=== PATIENT | male | born 1975 | race Caucasian/White ===

== ENCOUNTER 2018-07-25 09:13 | Observation (INO) | payer BC ==
[2018-07-25 09:52] LABS: #Eosinphils 0.2 thou/uL (0.0-0.7); #Monocytes 0.6 thou/uL (0.11-0.59); #Neutrophils 7.6 thou/uL (1.40-6.50); %Basophils 0.4 % (0.0-1.0); %Eosinophils 1.8 % (0.0-10.0); %Lymphocytes 19.1 % (21.0-51.0); %Monocytes 5.5 % (0.0-10.0); %Neutrophils 73.2 % (42.0-75.0); Hemoglobin 14.6 g/dL (14.0-18.0); Mean Corpuscular HGB CONC 34.6 g/dL (32.0-36.0); Mean Corpuscular Hemoglobin 30.3 pg (27.0-31.0); Mean Corpuscular Volume 87.6 fL (78.0-98.0); Mean Platelet Volume 6.1 fL (7.4-10.4); Platelet Count 315 thou/uL (130-400); RBC Distribution Width 12.3 % (11.5-14.5); White Blood Cell (WBC) Count 10.3 thou/uL (4.8-10.8)
[2018-07-25 10:04] LABS: ALT (SGPT) 21 U/L (8-55); AST (SGOT) 13 U/L (5-34); Albumin 4.5 g/dL (3.5-5.0); Alkaline Phosphatase 102 U/L (40-150); Anion Gap 14 mmol/L (10-20); BUN (Urea Nitrogen) 29 mg/dL (8.9-20.6); Bilirubin, Total 0.8 mg/dL (0.2-1.2); Calc. Creatinine Clearance 0 mL/min (70-130); Calcium 9.5 mg/dL (7.8-10.44); Carbon Dioxide 24 mmol/L (22-29); Chloride 107 mmol/L (98-107); Estimated GFR-MDRD Greater than 90; Globulin 2.7 g/dL (2.4-3.5); Glucose 105 mg/dL (70-105); Potassium 4.6 mmol/L (3.5-5.1); Protein, Total 7.2 g/dL (6.0-8.3); Sodium 140 mmol/L (136-145)
[2018-07-25 10:12] LABS: CKMB 1.2 ng/mL (0-6.6); Troponin I Less than 0.010 ng/mL (< 0.028)
--- NOTE | 2018-07-25 10:13 | RAD ---
CHEST 1 VIEW: HISTORY: Chest pain. COMPARISON: None. FINDINGS: Lungs are clear, although hypoinflated. No focal airspace consolidation, pneumothorax, or effusion. No acute osseous abnormality. IMPRESSION: No acute intrathoracic abnormality. POS: [facility]
[2018-07-25] MEDS ORDERED: Nitroglycerin 2% Ointment 1 INCH/1 GM Packet ONE (10:42)
[2018-07-25] MEDS ORDERED: Ondansetron ODT 4 MG TAB ONE (11:34)
[2018-07-25] MEDS ORDERED: Morphine 4 MG/ML VIAL ONE (12:41)
[2018-07-25] MEDS ORDERED: Acetaminophen 500 MG TAB ONE (12:41)
[2018-07-25 14:01] LABS: Troponin I 0.014 ng/mL (< 0.028)
[2018-07-25 14:09] LABS: Bilirubin Negative (Negative); Blood, Urine Negative (Negative); Clarity CLEAR (Clear); Glucose, Urine (Dipstick) Negative (Negative); Leukocyte Negative (Negative); Nitrite Negative (Negative); Protein, Urine (Dipstick) Negative (Neg-Trace); Specific Gravity, Urine 1.023 (1.002-1.036); Urobilinogen 0.2 mg/dL (0.2-1.0); pH, Urine 6.5 (5.0-9.0)
[2018-07-25] MEDS ORDERED: Ondansetron ODT 4 MG TAB PO PRN (15:11)
[2018-07-25] MEDS ORDERED: Nitroglycerin 0.4 MG TAB (25 Tab Bottle) PO PRN (15:11)
[2018-07-25] MEDS ORDERED: Lactated Ringer's 1,000 ML IV SCH (15:11)
--- NOTE | 2018-07-25 15:14 | PDOC.FPRHP ---
- History of Present Illness Chief Complaint: chest pain History of Present Illness: 43 yo M with persistent chest pain. Started two days ago ago started acutely while resting. Sharp, substernal, radiates to back, associated with SOB, headache, left arm tingling.Went to the [facility] ED yesterday where he was given nitro which relieved the pain. Per patient, cardiac workup was negative. Woke up this morning and same pain started but worse this time b/c it was more painful, 8/10. Drove straight to our ED.His job requires extensive physical demand involving lifting heavy objects. ED Course: Given morphine, nitro, nitro pasge, ASA - Allergies/Adverse Reactions Allergies Allergy/AdvReac Type Severity Reaction Status Date / Time Penicillins Allergy Verified 07/25/18 18:05 - Home Medications Medication Instructions Recorded Confirmed Type Lisinopril 1 tab PO DAILY 07/25/18 07/25/18 History Melatonin 4 tab PO HS 07/25/18 07/25/18 History - History PMHx:HTN, GERD PSHx: left biceps rupture repair, R meniscal and ACL repair, L4-L5 infusion FHx: mom with two MIs, first one in mid 40s. other reported family members with MIs but no cardiac deaths < age 55 Social: former 3 pack yr smoker (currently non smoker); 25 years of dipping, 3- 4 drinks/day for past year, denies drug use - Review of Systems General: denies: fever/chills, weight/appetite/sleep changes Eyes: denies: eye pain, vision changes ENT: denies: nasal congestion, rhinorrhea Respiratory: denies: cough, congestion, shortness of breath Cardiovascular: reports: chest pain. denies: palpitation, edema, paroxysmal nocturnal dyspnea, orthopnea Gastrointestinal: denies: nausea, vomiting, diarrhea, constipation Genitourinary: denies: incontinence, dysuria, polyuria Skin: denies: rashes, lesions, jaundice Musculoskeletal: reports: pain, tenderness. denies: stiffness Neurological: denies: numbness, syncope, seizure Psychological: denies: anxiety, depression - Vital signs BP: [135/75] HR: [86] RR: [16] Tmax: [98.7 Pox: [98]% on [RA] Wt: [145] - Physical Exam Constitutional: NAD, awake, alert and oriented, well developed HEENT: normocephalic and atraumatic, PERRLA, EOMI, no scleral icterus, grossly normal vision Neck: supple, FROM Chest: no lesions -Chest: left chest wall and left back paraspinal muscles extremely tender to palpation Heart: RRR, normal S1/S2, pulses present, no edema Lungs: CTAB, no respiratory distress, good air movement, no wheezing Abdomen: soft, non-tender, no masses/distention Musculoskeletal: normal structure, normal tone Neurological: CN II-XII intact Skin: good turgor, capillary refill <2 seconds Heme/Lymphatic: no unusual bruising or bleeding, no purpura Psychiatric: normal mood and affect, intact recent and remote memory FMR H&P: Results - Labs Result Diagrams: 07/25/18 09:33 07/25/18 09:33 Lab results: WBC 10.3 thou/uL (4.8-10.8) 07/25/18 09:33 Hgb 14.6 g/dL (14.0-18.0) 07/25/18 09:33 Hct 42.0 % (42.0-52.0) 07/25/18 09:33 MCV 87.6 fL (78.0-98.0) 07/25/18 09:33 Plt Count 315 thou/uL (130-400) 07/25/18 09:33 Neutrophils % 73.2 % (42.0-75.0) 07/25/18 09:33 Sodium 140 mmol/L (136-145) 07/25/18 09:33 Potassium 4.6 mmol/L (3.5-5.1) 07/25/18 09:33 Chloride 107 mmol/L (98-107) 07/25/18 09:33 Carbon Dioxide 24 mmol/L (22-29) 07/25/18 09:33 BUN 29 mg/dL (8.9-20.6) H 07/25/18 09:33 Creatinine 0.83 mg/dL (0.6-1.3) 07/25/18 09:33 Glucose 105 mg/dL (70-105) 07/25/18 09:33 Calcium 9.5 mg/dL (7.8-10.44) 07/25/18 09:33 Total Bilirubin 0.8 mg/dL (0.2-1.2) 07/25/18 09:33 AST 13 U/L (5-34) 07/25/18 09:33 ALT 21 U/L (8-55) 07/25/18 09:33 Alkaline Phosphatase 102 U/L (40-150) 07/25/18 09:33 CK-MB (CK-2) 1.2 ng/mL (0-6.6) 07/25/18 09:33 Serum Total Protein 7.2 g/dL (6.0-8.3) 07/25/18 09:33 Albumin 4.5 g/dL (3.5-5.0) 07/25/18 09:33 Urine Ketones Negative mg/dL (Negative) 07/25/18 13:57 Urine Blood Negative (Negative) 07/25/18 13:57 Urine Nitrite Negative (Negative) 07/25/18 13:57 Ur Leukocyte Esterase Negative (Negative) 07/25/18 13:57 - EKG Interpretation EKG: RRR, no ST elevations - Radiology Interpretation Other Status: image reviewed by me, report reviewed by me (hypoinflated lungs,no other acute intrathoracic processes) FMR H&P: A/P - Problem List (1) Atypical chest pain Current Visit: Yes Status: Acute Code(s): R07.89 - OTHER CHEST PAIN (2) Chest pain, rule out acute myocardial infarction Current Visit: Yes Status: Acute Code(s): R07.9 - CHEST PAIN, UNSPECIFIED (3) Hypertension Current Visit: Yes Status: Acute Code(s): I10 - ESSENTIAL (PRIMARY) HYPERTENSION (4) GERD (gastroesophageal reflux disease) Current Visit: Yes Status: Acute Code(s): K21.9 - GASTRO-ESOPHAGEAL REFLUX DISEASE WITHOUT ESOPHAGITIS - Plan 43 yo M with h/o HTN with atypical chest pain 1. Atypical chest pain, ACS r/o -likely MSK due to reproducibility and rigorous physical activity required of job, but with HEART score of 4 will complete ACS r/o workup -mom had NE in 40s -tele/obs for continuous monitoring -trops negative x3 -flexeril, tylenol, toradol for pain -NST in AM, npo at midnight 2. HTN -stable, continue home lisinopril 3. GERD -protonix Code status: full dvt ppx:lovenox gi ppx: protonix dispo: pending normal NST can d/c tmrw discussed with dr zuñiga FMR H&P: Upper Level - Plan Date/Time: 07/25/18 1512 I, [], have evaluated this patient and agree with findings/plan as outlined by communications intern resident. Pertinent changes/additions are listed here. Attending Addendum - Attending Addendum Date/Time: 07/25/18 1801 I personally evaluated the patient and discussed the management with Dr. Brown/Fabiola. I agree with the History, Examination, Assessment and Plan documented above with any addition or exceptions noted below. Patient with history of HTN and obesity here with a few days of chest pain. Reports onset of symptoms yesterday described as L and substernal chest pain with radiation around to back, associated with shortness of breath, diaphoresis , and L hand numbess (overall chronic). He was seen in [facility] yesterday and discharged with a nitro patch, but symptoms returned this morning and so he presented to ER. Currently, he reports that pain is better with nitro. On exam, normal cardiac exam. Pulses equal. He does have ecquisite chest wall tenderness palpation that is similar in nature to his pain complaint. His labs are overall normal and no enzyme changes. He will be observed on telemetry, and obtain stress test tomorrow. Risk stratification labs. Anticipate discharge tomorrow pending normal stress test. BP control as necessary.
[2018-07-25 16:21] VITALS: BMI 41.1
[2018-07-25] MEDS ORDERED: Cyclobenzaprine 10 MG TAB PO PRN (17:15)
[2018-07-25] MEDS: Acetaminophen 325 MG TAB PO PRN (17:24)
[2018-07-25 17:34] LABS: Troponin I Less than 0.010 ng/mL (< 0.028)
[2018-07-25] MEDS: Ketorolac Tromethamine 30 MG/ML VIAL IVP PRN (18:43)
[2018-07-25] MEDS ORDERED: Lisinopril 20 MG TAB PO SCH (21:00)
[2018-07-25] MEDS ORDERED: Melatonin 3 MG TAB PO SCH (21:00)
[2018-07-25 21:26] LABS: Amphetamine Not Detected (NotDetected); Barbiturates Screen Not Detected (NotDetected); Benzodiazepine Screen Detected (NotDetected); Cocaine Metabolite Screen Not Detected (NotDetected); Medtox Control Line Valid? VALID (VALID); Medtox Reader # READER 1; Methadone Not Detected (NotDetected); Methamphetamine Not Detected (NotDetected); Opiate Screen Not Detected (NotDetected); Oxycodone Screen Not Detected (NotDetected); Phencyclidine (PCP) Not Detected (NotDetected); THC/Cannabinoid Screen Not Detected (NotDetected); Tricyclic Screen Not Detected (NotDetected)
[2018-07-26 05:08] LABS: #Eosinphils 0.3 thou/uL (0.0-0.7); #Monocytes 0.8 thou/uL (0.11-0.59); #Neutrophils 7.5 thou/uL (1.40-6.50); %Basophils 0.3 % (0.0-1.0); %Monocytes 7.8 % (0.0-10.0); %Neutrophils 69.8 % (42.0-75.0); Hemoglobin 13.6 g/dL (14.0-18.0); Mean Corpuscular HGB CONC 35.2 g/dL (32.0-36.0); Mean Corpuscular Hemoglobin 30.6 pg (27.0-31.0); Mean Platelet Volume 6.3 fL (7.4-10.4); Platelet Count 273 thou/uL (130-400); RBC Distribution Width 12.4 % (11.5-14.5); Red Blood Cell (RBC) Count 4.45 mill/uL (4.70-6.10); White Blood Cell (WBC) Count 10.7 thou/uL (4.8-10.8)
[2018-07-26] MEDS: Ketorolac Tromethamine 30 MG/ML VIAL IVP PRN ×2 (05:15→11:51)
[2018-07-26 05:19] LABS: ALT (SGPT) 14 U/L (8-55); AST (SGOT) 11 U/L (5-34); Albumin 3.8 g/dL (3.5-5.0); Alkaline Phosphatase 90 U/L (40-150); Anion Gap 10 mmol/L (10-20); BUN (Urea Nitrogen) 27 mg/dL (8.9-20.6); Calc. Creatinine Clearance 251 mL/min (70-130); Calcium 9.1 mg/dL (7.8-10.44); Carbon Dioxide 25 mmol/L (22-29); Cardiac Risk 7.3 (Less than 4.5); Chloride 106 mmol/L (98-107); Cholesterol 197 mg/dl (< 200 Desired); Estimated GFR-MDRD Greater than 90; Globulin 2.6 g/dL (2.4-3.5); Glucose 92 mg/dL (70-105); HDL Cholesterol 27 mg/dL (>60 Neg Risk); LDL Cholesterol, Calculated 100 mg/dL; Potassium 3.9 mmol/L (3.5-5.1); Protein, Total 6.4 g/dL (6.0-8.3); Sodium 137 mmol/L (136-145); Triglycerides 348 mg/dL (Less than 150)
--- NOTE | 2018-07-26 05:48 | PDOC.FM ---
- Subjective Subjective: 43 yo M with Atypical CP. Reports CP to be much improved this morning. Reports he drinks 2 12packs of beers per week, last known beer was Saturday. Reports headache after nitro. Pt reports had L biceps muscle tear with surgery in the past, were unable to repair. - Objective Vital Signs & Weight: Vital Signs (12 hours) Temp Pulse Resp BP BP Pulse Ox 07/26/18 03:00 98.4 F 77 18 116/55 L 96 07/25/18 23:58 115/58 L 07/25/18 20:00 98.4 F 87 20 07/25/18 19:25 98.0 F 63 20 105/55 L 95 Weight Weight 145.104 kg I&O: 07/24/18 07/25/18 07/26/18 06:59 06:59 06:59 Intake Total 1085 Balance 1085 Result Diagrams: 07/26/18 04:19 07/26/18 04:19 <Renay Meza - Last Filed: 07/26/18 07:57> - Objective Vital Signs & Weight: Vital Signs (12 hours) Temp Pulse Resp BP BP Pulse Ox 07/26/18 08:00 98.2 F 67 18 07/26/18 07:20 98.2 F 67 18 105/55 L 98 07/26/18 03:00 98.4 F 77 18 116/55 L 96 07/25/18 23:58 115/58 L Weight Weight 145.104 kg I&O: 07/25/18 07/26/18 07/27/18 06:59 06:59 06:59 Intake Total 1085 Balance 1085 Result Diagrams: 07/26/18 04:19 07/26/18 04:19 <Jonas Whitehead - Last Filed: 07/26/18 10:58> Phys Exam - Physical Examination Constitutional: NAD HEENT: PERRLA, moist MMs, sclera anicteric Neck: no nodes Respiratory: no wheezing, no rales, no rhonchi Cardiovascular: RRR, no significant murmur Reproducible CP over left pectoralis muscle Gastrointestinal: soft, non-tender, no distention, positive bowel sounds Musculoskeletal: no edema, pulses present Lymphatic: no nodes Psychiatric: normal affect, A&O x 3 Skin: no rash, normal turgor, cap refill <2 seconds Deviation from normal: Scar over left UE <Renay Meza - Last Filed: 07/26/18 07:57> Dx/Plan (1) Alcohol abuse Code(s): F10.10 - ALCOHOL ABUSE, UNCOMPLICATED Status: Acute (2) Atypical chest pain Code(s): R07.89 - OTHER CHEST PAIN Status: Acute (3) Chest pain, rule out acute myocardial infarction Code(s): R07.9 - CHEST PAIN, UNSPECIFIED Status: Acute (4) GERD (gastroesophageal reflux disease) Code(s): K21.9 - GASTRO-ESOPHAGEAL REFLUX DISEASE WITHOUT ESOPHAGITIS Status: Acute (5) Hypertension Code(s): I10 - ESSENTIAL (PRIMARY) HYPERTENSION Status: Acute - Plan Plan: 43 yo M with h/o HTN with atypical chest pain 1. Atypical chest pain, ACS r/o -likely MSK due to reproducibility and rigorous physical activity required of job, but with HEART score of 4 will complete ACS r/o workup -mom had NE in 40s -tele/obs for continuous monitoring -trops negative x3 -flexeril, tylenol, toradol for pain -Stress test today, if normal can d/c 2. HTN -stable, continue home lisinopril 3. GERD -protonix 4. Alcohol abuse -24 beers/wk -ASE protocol, ativan PRN for withdrawal sx - Last beer on saturday 5. Hyperlipidemia -ASCVD score 3.5, 10 year risk low -Start atorvastatin 10 mg Code status: full dvt ppx:lovenox Eddie Meza PGY-1 <Renay Meza - Last Filed: 07/26/18 07:57> (1) Atypical chest pain Code(s): R07.89 - OTHER CHEST PAIN Status: Acute (2) Chest pain, rule out acute myocardial infarction Code(s): R07.9 - CHEST PAIN, UNSPECIFIED Status: Acute (3) Hypertension Code(s): I10 - ESSENTIAL (PRIMARY) HYPERTENSION Status: Acute (4) GERD (gastroesophageal reflux disease) Code(s): K21.9 - GASTRO-ESOPHAGEAL REFLUX DISEASE WITHOUT ESOPHAGITIS Status: Acute <Jonas Whitehead - Last Filed: 07/26/18 10:58> Attending Addendum - Attending Addendum Date/Time: 07/26/18 1057 I personally evaluated the patient and discussed the management with Dr. Meza. I agree with the History, Examination, Assessment and Plan documented above with any addition or exceptions noted below. Patient pain improved. He is going for stress testing this morning but current pain complaint is very consistent with MSK type chest pain. Improved with Toradol and Flexeril. Anticipating normal stress testing, will likely be discharged later today. Started on statin therapy due to mixed hyperlipidemia. <Jonas Whitehead - Last Filed: 07/26/18 10:58>
[2018-07-26] MEDS: Nitroglycerin 0.4 MG TAB (25 Tab Bottle) ONE ×2 (06:05→06:11)
[2018-07-26] MEDS: Acetaminophen 325 MG TAB PO PRN (06:07)
[2018-07-26] MEDS ORDERED: Lorazepam 2 MG/ML VIAL SLOW IVP PRN (07:56)
[2018-07-26 08:03] LABS: CKMB 0.9 ng/mL (0-6.6); Troponin I Less than 0.010 ng/mL (< 0.028)
[2018-07-26] MEDS ORDERED: Lisinopril 20 MG TAB PO SCH (09:00)
[2018-07-26] MEDS ORDERED: Enoxaparin Sodium 30 MG/0.3 ML SYRINGE SC SCH (09:00)
[2018-07-26] MEDS ORDERED: Aspirin 325 MG TAB PO SCH (09:00)
[2018-07-26] MEDS ORDERED: Regadenoson 0.4 MG/5 ML SYRINGE ONE (10:42)
[2018-07-26 12:12] VITALS: BP 129/66; TEMP 98.5
--- NOTE | 2018-07-26 13:23 | NM ---
CARDIAC SPECT: HISTORY: A 43-year-old male with acute coronary syndrome, hypertension, chest pain. TECHNIQUE: A stress-only myocardial perfusion scan was performed using the intravenous administration of 29 mCi Technetium 99m sestamibi. Pharmacologic stress with LexiScan is monitored and interpreted by Dr. Lee baumann. FINDINGS: Homogeneous tracer distribution is seen in the myocardial segments on the post stress images. GATED SPECT LVEF: 56%. WALL MOTION EXAM: Normal. IMPRESSION: Normal post stress myocardial perfusion scan. POS: [facility]
[2018-07-26] MEDS ORDERED: Diclofenac Sodium 25 mg Tablet PO SCH (21:00)
[2018-07-26] MEDS ORDERED: Atorvastatin Calcium 10 MG TAB PO SCH (21:00)
--- NOTE | 2018-07-27 19:08 | DIS-2 ---
DATE OF ADMISSION: 07/25/2018 DATE OF DISCHARGE: 07/26/2018 RESIDENT: Darrel Whitaker MD ADMITTING ATTENDING: Jonas Whitehead MD DISCHARGE ATTENDING: Jonas Whitehead MD CONSULTATIONS: None. PROCEDURES: 1. Chest x-ray on 07/25/2018, impression: No acute intrathoracic abnormality. 2. Stress test nuclear medicine on 07/26/2018, impression: Normal post-stress myocardial perfusion scan. PRIMARY DIAGNOSIS: Atypical chest pain, rule out acute myocardial infarction, likely musculoskeletal in nature. SECONDARY DIAGNOSES: Hypertension and GERD. DISCHARGE MEDICATIONS: Melatonin 10 mg tablet p.o. at bedtime; lisinopril 40 mg tablet, 1 tablet p.o . daily; atorvastatin calcium 10 mg p.o. at bedtime, #30; cyclobenzaprine 10 mg p.o. t.i.d. p.r.n.; d iclofenac sodium 50 mg p.o. b.i.d. DISCONTINUED MEDICATIONS: None. HISTORY OF PRESENT ILLNESS AND HOSPITAL COURSE: A 43-year-old male with history of hypertension pres ented with persistent chest pain. Originally, the patient had reported that chest pain was sudden in onset while resting of sharp substernal character with radiation to the back and associated shortnes s of breath, headache, and left arm tingling. The patient went to [place] ED and was given nitrog lycerin, which relieved the pain. Per the patient, cardiac workup was negative. The next day, the p atient had similar pain of greater severity and drove to [facility] Emergency Department. In the E D, he was given morphine, nitroglycerin, nitroglycerin paste, and aspirin and full cardiac workup was performed including stress test. Troponins were negative x3. Stress test was negative and the tariq ent then reported that he was actually moving heavy feed sacks when the pain began. After ruling out cardiac causes and confirming musculoskeletal nature of chest pain, the patient was discharged. DISPOSITION: Stable. DISCHARGE INSTRUCTIONS: 1. Discharged home. 2. Diet: Heart healthy. 3. Activity: Instructed to not work for 2 weeks and limit heavy lifting. Follow up with physician out of town in 7 days.
== END 2018-07-26 15:06 | disposition home or self-care (01) ==
LOC: ERS 09:13 → 2SW 13:58
PROVIDERS: ADMIT Student in an Organized Health Care Education/Training Program; ATTEND Student in an Organized Health Care Education/Training Program
DX: R07.89 Other chest pain (principal); I10 Essential (primary) hypertension; K21.9 Gastro-esophageal reflux disease without esophagitis
CPT/HCPCS: 36415; 71045; 78452; 80053; 80061; 80306; 81003; 82553; 83690; 84484; 85025; 93005; 93010; 93017; 96374; A9500; J1650; J1885; J2270; J2785; Q0162

== ENCOUNTER 2021-10-02 15:45 | Inpatient (IN) | payer BC ==
[~2021-10-02 15:45] MED LIST: Iopamidol-370 76% 500 ML 1 ML ONE
[2021-10-02] MEDS ORDERED: Ketorolac Tromethamine 30 MG/ML VIAL ONE (16:21)
[2021-10-02 16:42] LABS: #Eosinphils 0.1 thou/uL (0.0-0.7); #Lymphocytes 1.1 thou/uL (1.20-3.40); #Neutrophils 12.8 thou/uL (1.40-6.50); %Basophils 0.2 % (0.0-1.0); %Eosinophils 0.9 % (0.0-10.0); %Monocytes 6.5 % (0.0-10.0); %Neutrophils 85.4 % (42.0-75.0); Hemoglobin 19.2 g/dL (14.0-18.0); Mean Corpuscular HGB CONC 32.6 g/dL (32.0-36.0); Mean Corpuscular Hemoglobin 29.2 pg (27.0-31.0); Mean Corpuscular Volume 89.5 fL (78.0-98.0); Mean Platelet Volume 6.6 fL (7.4-10.4); Platelet Count 244 thou/uL (130-400); RBC Distribution Width 14.8 % (11.5-14.5); Red Blood Cell (RBC) Count 6.58 mill/uL (4.70-6.10)
[2021-10-02] MEDS ORDERED: metroNIDAZOLE 500 MG/100 ML BAG ONE (17:08)
[2021-10-02 17:13] LABS: ALT (SGPT) 19 U/L (8-55); AST (SGOT) 18 U/L (5-34); Albumin 4.1 g/dL (3.5-5.0); Alkaline Phosphatase 97 U/L (40-110); Anion Gap 14 mmol/L (10-20); BUN (Urea Nitrogen) 11 mg/dL (8.9-20.6); Bilirubin, Total 1.5 mg/dL (0.2-1.2); Calc. Creatinine Clearance 0 mL/min (70-130); Carbon Dioxide 23 mmol/L (22-29); Chloride 104 mmol/L (98-107); Globulin 2.8 g/dL (2.4-3.5); Glucose 107 mg/dL (70-105); Lipase 13 U/L (8-78); Potassium 4.4 mmol/L (3.5-5.1); Protein, Total 6.9 g/dL (6.0-8.3); Sodium 137 mmol/L (136-145)
[2021-10-02] MEDS ORDERED: hydrALAZINE 20 MG/ML VIAL SLOW IVP PRN (19:04)
[2021-10-02] MEDS ORDERED: Ondansetron PF 4 MG/2 ML Vial IVP PRN (19:04)
[2021-10-02] MEDS ORDERED: Ketorolac Tromethamine 30 MG/ML VIAL IVP SCH (19:15)
[2021-10-02] MEDS ORDERED: Magnesium Citrate 300 ML BOT PO SCH (19:15)
[2021-10-02] MEDS: Enoxaparin Sodium 40 MG/0.4 ML SYRINGE SC SCH (21:01)
[2021-10-02] MEDS: Famotidine 20 MG TAB PO SCH (21:01)
[2021-10-02] MEDS: D5 1/2 NS w/20 mEq KCL 1,000 ML IV SCH (21:01)
[2021-10-02] MEDS: Cyclobenzaprine 10 MG TAB PO PRN (21:02)
[2021-10-02] MEDS: Melatonin 3 MG TAB PO SCH (21:03)
[2021-10-02] MEDS: Polyethylene Glycol 3350 17 GM Packet PO SCH (21:03)
[2021-10-02 22:47] VITALS: BMI 38.5
[2021-10-02 23:51] LABS: SARS-CoV-2 NAA Rapid Test Not Detected (NotDetected)
[2021-10-03] MEDS: METRONIDAZOLE IVPB SCH ×3 (01:49→17:22)
[2021-10-03] MEDS: Ketorolac Tromethamine 30 MG/ML VIAL IVP PRN ×4 (03:09→21:20)
[2021-10-03] MEDS: D5 1/2 NS w/20 mEq KCL 1,000 ML IV SCH ×3 (06:36→15:38)
[2021-10-03 06:38] LABS: #Basophils 0.1 thou/uL (0.0-0.2); #Eosinphils 0.2 thou/uL (0.0-0.7); #Lymphocytes 2.1 thou/uL (1.20-3.40); #Monocytes 1.4 thou/uL (0.11-0.59); #Neutrophils 9.9 thou/uL (1.40-6.50); %Basophils 0.5 % (0.0-1.0); %Eosinophils 1.1 % (0.0-10.0); %Lymphocytes 15.4 % (21.0-51.0); %Monocytes 10.2 % (0.0-10.0); %Neutrophils 72.7 % (42.0-75.0); Hemoglobin 17.7 g/dL (14.0-18.0); Mean Corpuscular HGB CONC 31.6 g/dL (32.0-36.0); Mean Corpuscular Hemoglobin 28.7 pg (27.0-31.0); Mean Corpuscular Volume 90.9 fL (78.0-98.0); Mean Platelet Volume 6.6 fL (7.4-10.4); Platelet Count 263 thou/uL (130-400); RBC Distribution Width 14.7 % (11.5-14.5); Red Blood Cell (RBC) Count 6.16 mill/uL (4.70-6.10); White Blood Cell (WBC) Count 13.7 thou/uL (4.8-10.8)
[2021-10-03 07:06] LABS: ALT (SGPT) 17 U/L (8-55); AST (SGOT) 15 U/L (5-34); Albumin 3.7 g/dL (3.5-5.0); Alkaline Phosphatase 85 U/L (40-110); Anion Gap 11 mmol/L (10-20); BUN (Urea Nitrogen) 10 mg/dL (8.9-20.6); Bilirubin, Total 1.8 mg/dL (0.2-1.2); Calc. Creatinine Clearance 234 mL/min (70-130); Carbon Dioxide 25 mmol/L (22-29); Chloride 105 mmol/L (98-107); Globulin 2.5 g/dL (2.4-3.5); Glucose 108 mg/dL (70-105); Potassium 4.7 mmol/L (3.5-5.1); Protein, Total 6.2 g/dL (6.0-8.3); Sodium 136 mmol/L (136-145)
[2021-10-03] MEDS: Calcium Polycarbophil 625 MG TAB PO SCH (08:41)
[2021-10-03] MEDS: Lisinopril 20 MG TAB PO SCH (08:41)
[2021-10-03] MEDS: Famotidine 20 MG TAB PO SCH ×2 (08:41→20:12)
[2021-10-03] MEDS: Polyethylene Glycol 3350 17 GM Packet PO SCH ×2 (08:43→20:12)
[2021-10-03] MEDS ORDERED: Magnesium Citrate 300 ML BOT PO SCH (14:45)
[2021-10-03] MEDS: Gabapentin 300 MG CAP PO SCH ×2 (15:48→20:25)
[2021-10-03] MEDS: Ondansetron ODT 4 MG TAB PO PRN (17:24)
[2021-10-03] MEDS: Melatonin 3 MG TAB PO SCH (20:13)
[2021-10-03] MEDS: Enoxaparin Sodium 40 MG/0.4 ML SYRINGE SC SCH (20:25)
[2021-10-03] MEDS: Cyclobenzaprine 10 MG TAB PO PRN (21:21)
[2021-10-04] MEDS: Ketorolac Tromethamine 30 MG/ML VIAL IVP PRN ×2 (02:07→07:46)
[2021-10-04] MEDS: METRONIDAZOLE IVPB SCH ×4 (02:08→19:49)
[2021-10-04] MEDS: D5 1/2 NS w/20 mEq KCL 1,000 ML IV SCH ×4 (02:08→18:54)
[2021-10-04 06:25] LABS: #Eosinphils 0.3 thou/uL (0.0-0.7); #Lymphocytes 1.5 thou/uL (1.20-3.40); #Monocytes 1.4 thou/uL (0.11-0.59); #Neutrophils 8.2 thou/uL (1.40-6.50); %Basophils 0.3 % (0.0-1.0); %Eosinophils 2.4 % (0.0-10.0); %Lymphocytes 13.1 % (21.0-51.0); %Monocytes 12.3 % (0.0-10.0); %Neutrophils 71.8 % (42.0-75.0); Hemoglobin 17.4 g/dL (14.0-18.0); Mean Corpuscular HGB CONC 33.4 g/dL (32.0-36.0); Mean Corpuscular Hemoglobin 30.7 pg (27.0-31.0); Mean Corpuscular Volume 91.9 fL (78.0-98.0); Mean Platelet Volume 6.9 fL (7.4-10.4); Platelet Count 213 thou/uL (130-400); RBC Distribution Width 14.5 % (11.5-14.5); Red Blood Cell (RBC) Count 5.69 mill/uL (4.70-6.10); White Blood Cell (WBC) Count 11.5 thou/uL (4.8-10.8)
[2021-10-04] MEDS: Famotidine 20 MG TAB PO SCH (08:02)
[2021-10-04] MEDS: Calcium Polycarbophil 625 MG TAB PO SCH (08:02)
[2021-10-04] MEDS: Lisinopril 20 MG TAB PO SCH (08:03)
[2021-10-04] MEDS: Polyethylene Glycol 3350 17 GM Packet PO SCH (08:03)
[2021-10-04] MEDS: Gabapentin 300 MG CAP PO SCH ×3 (08:03→21:43)
[2021-10-04] MEDS ORDERED: Fentanyl 100 MCG/2 ML VIAL ONE ×5 (11:04→16:57)
[2021-10-04] MEDS ORDERED: Midazolam HCl 2 mg/2 ml Vial ONE ×2 (11:18→12:33)
[2021-10-04] MEDS ORDERED: Fentanyl 250 MCG/5 ML VIAL ONE (12:33)
[2021-10-04] MEDS ORDERED: Ondansetron PF 4 MG/2 ML Vial ONE (12:49)
[2021-10-04] MEDS ORDERED: PROPOFOL 200 MG/20 ML VIAL ONE (13:42)
[2021-10-04] MEDS ORDERED: Glycopyrrolate 0.2 MG/ML 5 ML SYRINGE ONE (13:42)
[2021-10-04] MEDS ORDERED: Ketorolac Tromethamine 30 MG/ML VIAL ONE (13:42)
[2021-10-04] MEDS ORDERED: Bupivacaine HCl 0.5%/Epinephrine 1:200,000/PF 30 ml Vial ONE (13:42)
[2021-10-04] MEDS ORDERED: Lidocaine 1% PF 5 ML VIAL ONE (13:42)
[2021-10-04] MEDS ORDERED: Succinylcholine 200 MG/10 ml SYRINGE FS ONE (13:42)
[2021-10-04] MEDS ORDERED: Promethazine HCl 25 MG/ML VIAL IM PRN ×2 (16:02→17:10)
[2021-10-04] MEDS ORDERED: Ondansetron HCl/PF 4 MG/2 ML Vial IVP PRN (16:02)
[2021-10-04] MEDS ORDERED: Promethazine HCl 25 MG/ML VIAL IVPB PRN (16:02)
[2021-10-04] MEDS ORDERED: Morphine 4 MG/ML VIAL SLOW IVP PRN ×2 (16:04)
[2021-10-04] MEDS ORDERED: HYDROmorphone 0.5 MG/0.5 ML SYRINGE ONE (17:05)
[2021-10-04] MEDS ORDERED: diphenhydrAMINE 50 MG/ML VIAL IM PRN (17:10)
[2021-10-04] MEDS ORDERED: diphenhydrAMINE 25 MG CAP PO PRN (17:10)
[2021-10-04] MEDS ORDERED: Zolpidem Tartrate 5 MG TAB PO PRN (17:10)
[2021-10-04] MEDS ORDERED: Naloxone HCl 0.4 mg/ml Vial IV PRN (17:10)
[2021-10-04] MEDS ORDERED: diphenhydrAMINE 50 MG/ML VIAL IVP PRN (17:10)
[2021-10-04] MEDS ORDERED: Communication Order-Pharmacy FS SCH (17:15)
[2021-10-04] MEDS: Acetaminophen 500 MG TAB PO SCH (18:35)
[2021-10-04] MEDS: Gabapentin 400 MG CAP PO SCH (21:24)
[2021-10-04] MEDS: Melatonin 3 MG TAB PO SCH (21:25)
[2021-10-04] MEDS: Lidocaine 5% Patch TD SCH (21:26)
[2021-10-04] MEDS: Ketorolac Tromethamine 30 MG/ML VIAL IVP SCH (21:27)
[2021-10-04] MEDS: Enoxaparin Sodium 40 MG/0.4 ML SYRINGE SC SCH (21:43)
[2021-10-05] MEDS: Acetaminophen 500 MG TAB PO SCH ×4 (00:05→17:38)
[2021-10-05] MEDS: D5 1/2 NS w/20 mEq KCL 1,000 ML IV SCH ×2 (00:05→06:56)
[2021-10-05] MEDS: Ketorolac Tromethamine 30 MG/ML VIAL IVP SCH ×4 (04:33→20:22)
[2021-10-05] MEDS: METRONIDAZOLE IVPB SCH ×3 (04:34→20:21)
[2021-10-05] MEDS: Ondansetron ODT 4 MG TAB PO PRN (05:45)
[2021-10-05] MEDS: Cyclobenzaprine 10 MG TAB PO PRN ×2 (05:48→22:13)
[2021-10-05] MEDS: Gabapentin 400 MG CAP PO SCH ×3 (08:48→20:21)
[2021-10-05] MEDS: Lisinopril 20 MG TAB PO SCH ×2 (08:49→09:53)
[2021-10-05 08:52] LABS: #Eosinphils 0.1 thou/uL (0.0-0.7); #Lymphocytes 1.1 thou/uL (1.20-3.40); #Monocytes 1.4 thou/uL (0.11-0.59); #Neutrophils 11.7 thou/uL (1.40-6.50); %Basophils 0.1 % (0.0-1.0); %Eosinophils 0.6 % (0.0-10.0); %Lymphocytes 7.5 % (21.0-51.0); %Monocytes 9.9 % (0.0-10.0); %Neutrophils 81.9 % (42.0-75.0); Hemoglobin 16.6 g/dL (14.0-18.0); Mean Corpuscular HGB CONC 33.6 g/dL (32.0-36.0); Mean Corpuscular Hemoglobin 30.6 pg (27.0-31.0); Mean Corpuscular Volume 90.9 fL (78.0-98.0); Mean Platelet Volume 6.7 fL (7.4-10.4); Platelet Count 226 thou/uL (130-400); RBC Distribution Width 14.4 % (11.5-14.5); Red Blood Cell (RBC) Count 5.44 mill/uL (4.70-6.10); White Blood Cell (WBC) Count 14.3 thou/uL (4.8-10.8)
[2021-10-05 09:20] LABS: Anion Gap 12 mmol/L (10-20); Calcium 8.2 mg/dL (7.8-10.44); Carbon Dioxide 25 mmol/L (22-29); Chloride 103 mmol/L (98-107); Potassium 4.3 mmol/L (3.5-5.1); Sodium 136 mmol/L (136-145)
[2021-10-05 09:31] LABS: Glucose 105 mg/dL (70-105)
[2021-10-05 09:34] LABS: Calc. Creatinine Clearance 219 mL/min (70-130)
[2021-10-05 09:35] LABS: BUN (Urea Nitrogen) 12 mg/dL (8.9-20.6)
[2021-10-05] MEDS: Pantoprazole 40 MG VIAL IVP SCH (09:46)
[2021-10-05] MEDS: fentaNYL Citrate/PF 2,000 MCG in Sodium Chloride 0.9% 60 ML IV PRN (10:42)
[2021-10-05] MEDS: Transdermal Patch Removal TOP SCH (10:54)
[2021-10-05] MEDS: Ondansetron PF 4 MG/2 ML Vial IVP PRN (11:57)
[2021-10-05] MEDS: Melatonin 3 MG TAB PO SCH (20:20)
[2021-10-05] MEDS: Enoxaparin Sodium 40 MG/0.4 ML SYRINGE SC SCH (20:21)
[2021-10-05] MEDS: Lidocaine 5% Patch TD SCH (20:22)
[2021-10-06] MEDS: Acetaminophen 500 MG TAB PO SCH ×5 (00:25→23:49)
[2021-10-06] MEDS: METRONIDAZOLE IVPB SCH ×2 (03:44→12:20)
[2021-10-06] MEDS: Ketorolac Tromethamine 30 MG/ML VIAL IVP SCH ×4 (03:44→21:40)
[2021-10-06] MEDS: Ondansetron PF 4 MG/2 ML Vial IVP PRN ×2 (06:55→15:20)
[2021-10-06] MEDS: Gabapentin 400 MG CAP PO SCH ×4 (08:54→21:41)
[2021-10-06] MEDS: Lisinopril 20 MG TAB PO SCH (08:54)
[2021-10-06] MEDS: Transdermal Patch Removal TOP SCH (08:55)
[2021-10-06] MEDS: Pantoprazole 40 MG VIAL IVP SCH (08:55)
[2021-10-06] MEDS: fentaNYL Citrate/PF 2,000 MCG in Sodium Chloride 0.9% 60 ML IV PRN (09:59)
[2021-10-06] MEDS ORDERED: AMPHETAMINE PO SCH (21:00)
[2021-10-06] MEDS ORDERED: DEXTROAMPHETAMINE PO SCH (21:00)
[2021-10-06] MEDS: Enoxaparin Sodium 40 MG/0.4 ML SYRINGE SC SCH (21:40)
[2021-10-06] MEDS: Lidocaine 5% Patch TD SCH (21:40)
[2021-10-06] MEDS: Cyclobenzaprine 10 MG TAB PO PRN (21:43)
[2021-10-06] MEDS: Melatonin 3 MG TAB PO SCH (21:52)
[2021-10-07] MEDS: Ketorolac Tromethamine 30 MG/ML VIAL IVP SCH ×4 (02:22→21:30)
[2021-10-07] MEDS: Ondansetron PF 4 MG/2 ML Vial IVP PRN ×2 (04:29→11:44)
[2021-10-07] MEDS: Acetaminophen 500 MG TAB PO SCH ×4 (06:45→23:52)
[2021-10-07] MEDS: Gabapentin 400 MG CAP PO SCH ×5 (08:05→21:45)
[2021-10-07] MEDS: Propranolol HCl LA 80 MG CAP PO SCH (09:51)
[2021-10-07] MEDS: Lisinopril 20 MG TAB PO SCH (09:52)
[2021-10-07] MEDS: Transdermal Patch Removal TOP SCH (09:57)
[2021-10-07] MEDS: D5 1/2 NS w/20 mEq KCL 1,000 ML IV SCH (09:58)
[2021-10-07] MEDS: fentaNYL Citrate/PF 2,000 MCG in Sodium Chloride 0.9% 60 ML IV PRN (13:52)
[2021-10-07] MEDS: Cyclobenzaprine 10 MG TAB PO PRN (21:30)
[2021-10-07] MEDS: Lidocaine 5% Patch TD SCH (21:30)
[2021-10-07] MEDS: Enoxaparin Sodium 40 MG/0.4 ML SYRINGE SC SCH (21:30)
[2021-10-07] MEDS: Melatonin 3 MG TAB PO SCH (21:31)
[2021-10-08] MEDS: Ketorolac Tromethamine 30 MG/ML VIAL IVP SCH ×2 (03:26→11:01)
[2021-10-08] MEDS: Acetaminophen 500 MG TAB PO SCH ×4 (05:26→23:29)
[2021-10-08] MEDS: Ondansetron PF 4 MG/2 ML Vial IVP PRN (06:31)
[2021-10-08] MEDS: Lisinopril 20 MG TAB PO SCH (11:00)
[2021-10-08] MEDS: Propranolol HCl LA 80 MG CAP PO SCH (11:00)
[2021-10-08] MEDS: Transdermal Patch Removal TOP SCH (11:03)
[2021-10-08] MEDS: Gabapentin 400 MG CAP PO SCH ×3 (11:08→20:48)
[2021-10-08] MEDS: D5 1/2 NS w/20 mEq KCL 1,000 ML IV SCH (11:10)
[2021-10-08] MEDS ORDERED: HYDROcodone/Acetaminophen 10/325 mg Tablet PO PRN (12:38)
[2021-10-08] MEDS ORDERED: Ibuprofen 600 MG TAB PO PRN (12:38)
[2021-10-08] MEDS ORDERED: Lidocaine 1% w/Epinephrine 1:100K 20 ML VIAL ONE (16:22)
[2021-10-08] MEDS ORDERED: Lidocaine 1% (PF) 30 ML VIAL ONE (16:25)
[2021-10-08] MEDS: HYDROcodone/Acetaminophen 10/325 mg Tablet PO PRN ×2 (18:49→23:20)
[2021-10-08] MEDS: Lidocaine 5% Patch TD SCH (20:46)
[2021-10-08] MEDS: Melatonin 3 MG TAB PO SCH (20:47)
[2021-10-08] MEDS: Enoxaparin Sodium 40 MG/0.4 ML SYRINGE SC SCH (20:47)
[2021-10-08] MEDS: Cyclobenzaprine 10 MG TAB PO PRN (23:20)
[2021-10-09] MEDS: HYDROcodone/Acetaminophen 10/325 mg Tablet PO PRN ×2 (05:22→09:58)
[2021-10-09] MEDS: Acetaminophen 500 MG TAB PO SCH ×4 (05:25→19:49)
[2021-10-09] MEDS: Lisinopril 20 MG TAB PO SCH (10:01)
[2021-10-09] MEDS: Gabapentin 400 MG CAP PO SCH ×3 (10:01→19:48)
[2021-10-09] MEDS: Propranolol HCl LA 80 MG CAP PO SCH (10:02)
[2021-10-09] MEDS: Polyethylene Glycol 3350 17 GM Packet PO SCH (10:02)
[2021-10-09] MEDS ORDERED: Ondansetron PF 4 MG/2 ML Vial IVP PRN (10:17)
[2021-10-09 12:14] LABS: ALT (SGPT) 26 U/L (8-55); AST (SGOT) 45 U/L (5-34); Albumin 3.6 g/dL (3.5-5.0); Alkaline Phosphatase 78 U/L (40-110); Anion Gap 14 mmol/L (10-20); BUN (Urea Nitrogen) 15 mg/dL (8.9-20.6); Calc. Creatinine Clearance 231 mL/min (70-130); Carbon Dioxide 24 mmol/L (22-29); Chloride 103 mmol/L (98-107); Globulin 2.7 g/dL (2.4-3.5); Glucose 100 mg/dL (70-105); Potassium 4.7 mmol/L (3.5-5.1); Protein, Total 6.3 g/dL (6.0-8.3); Sodium 136 mmol/L (136-145)
[2021-10-09] MEDS ORDERED: Lidocaine 2% Jelly 5 ML TUBE TOP SCH (12:45)
[2021-10-09] MEDS ORDERED: Benzocaine 20% Spray 60 ML CAN FS SCH (12:45)
[2021-10-09] MEDS: Morphine 4 MG/ML VIAL SLOW IVP PRN ×2 (13:13→18:00)
[2021-10-09] MEDS: D5 1/2 NS w/20 mEq KCL 1,000 ML IV SCH ×3 (13:16→22:12)
[2021-10-09 13:19] LABS: Hemoglobin 19.1 g/dL (14.0-18.0); Mean Corpuscular HGB CONC 31.7 g/dL (32.0-36.0); Mean Corpuscular Hemoglobin 29.4 pg (27.0-31.0); Mean Corpuscular Volume 92.6 fL (78.0-98.0); Mean Platelet Volume 6.8 fL (7.4-10.4); Platelet Count 320 thou/uL (130-400); RBC Distribution Width 14.1 % (11.5-14.5); Red Blood Cell (RBC) Count 6.49 mill/uL (4.70-6.10); White Blood Cell (WBC) Count 19.7 thou/uL (4.8-10.8)
[2021-10-09 13:33] LABS: Band 13 % (5-11); Lymphocytes 5 % (21-51); MDiff Complete? YES; Monocytes 7 % (0-10); Neutrophil 75 % (42-75); Platelet Morphology Comment Appears Adequate; RBC Morphology Normal
[2021-10-09] MEDS ORDERED: Lactated Ringer's 1,000 ML IV SCH (13:45)
[2021-10-09] MEDS: Transdermal Patch Removal TOP SCH (15:06)
[2021-10-09] MEDS: Ketorolac Tromethamine 30 MG/ML VIAL IVP PRN ×2 (16:32→22:05)
[2021-10-09] MEDS: Melatonin 3 MG TAB PO SCH (19:49)
[2021-10-09] MEDS: Enoxaparin Sodium 40 MG/0.4 ML SYRINGE SC SCH (21:24)
[2021-10-09] MEDS: Lidocaine 5% Patch TD SCH (22:06)
[2021-10-10] MEDS: Morphine 4 MG/ML VIAL SLOW IVP PRN ×2 (00:23→10:16)
[2021-10-10] MEDS: Acetaminophen 500 MG TAB PO SCH ×5 (02:30→22:35)
[2021-10-10] MEDS ORDERED: Sodium Chloride 0.9% 1,000 ML IV SCH (05:15)
[2021-10-10 05:59] LABS: Hemoglobin 15.9 g/dL (14.0-18.0); Mean Corpuscular HGB CONC 33.3 g/dL (32.0-36.0); Mean Corpuscular Hemoglobin 29.9 pg (27.0-31.0); Mean Corpuscular Volume 89.8 fL (78.0-98.0); Platelet Count 216 thou/uL (130-400); Red Blood Cell (RBC) Count 5.31 mill/uL (4.70-6.10); White Blood Cell (WBC) Count 10.2 thou/uL (4.8-10.8)
[2021-10-10 06:07] LABS: Anion Gap 13 mmol/L (10-20); BUN (Urea Nitrogen) 20 mg/dL (8.9-20.6); Calc. Creatinine Clearance 209 mL/min (70-130); Calcium 8.5 mg/dL (7.8-10.44); Carbon Dioxide 25 mmol/L (22-29); Chloride 103 mmol/L (98-107); Glucose 109 mg/dL (70-105); Potassium 3.5 mmol/L (3.5-5.1); Sodium 137 mmol/L (136-145)
[2021-10-10 06:20] LABS: Band 13 % (5-11); Lymphocytes 4 % (21-51); MDiff Complete? YES; Monocytes 9 % (0-10); Myelocyte 1 % (0-0); Neutrophil 73 % (42-75)
[2021-10-10] MEDS: Ketorolac Tromethamine 30 MG/ML VIAL IVP PRN ×2 (06:32→21:00)
[2021-10-10] MEDS ORDERED: Pantoprazole 40 MG VIAL IVP SCH (09:00)
[2021-10-10] MEDS: Lisinopril 20 MG TAB PO SCH (09:28)
[2021-10-10] MEDS: Propranolol HCl LA 80 MG CAP PO SCH (09:28)
[2021-10-10] MEDS: Gabapentin 400 MG CAP PO SCH ×3 (09:29→20:59)
[2021-10-10] MEDS: Polyethylene Glycol 3350 17 GM Packet PO SCH (09:40)
[2021-10-10] MEDS ORDERED: Iopamidol 370 76% 100 ML VIAL ONE (09:59)
[2021-10-10] MEDS ORDERED: Iopamidol 370 76% 50 ML VIAL FS ONE (09:59)
[2021-10-10] MEDS: Transdermal Patch Removal TOP SCH (10:50)
[2021-10-10] MEDS ORDERED: metroNIDAZOLE 500 MG in Premix Bag 1 BAG IVPB SCH ×2 (14:00→22:00)
[2021-10-10] MEDS: D5 1/2 NS w/20 mEq KCL 1,000 ML IV SCH ×4 (14:02→21:01)
[2021-10-10] MEDS: metroNIDAZOLE 500 MG TAB PO SCH ×2 (17:05→22:34)
[2021-10-10 17:06] LABS: SARS-CoV-2 PCR by NAA Not Detected (NotDetected)
[2021-10-10] MEDS: Cyclobenzaprine 10 MG TAB PO PRN (21:00)
[2021-10-10] MEDS: Melatonin 3 MG TAB PO SCH (21:01)
[2021-10-10] MEDS: Pantoprazole 40 MG VIAL IVP SCH (21:16)
[2021-10-10] MEDS: Lidocaine 5% Patch TD SCH (21:31)
[2021-10-10] MEDS: HYDROcodone/Acetaminophen 10/325 mg Tablet PO PRN (22:34)
[2021-10-11] MEDS: HYDROcodone/Acetaminophen 10/325 mg Tablet PO PRN ×4 (05:30→21:22)
[2021-10-11] MEDS: Acetaminophen 500 MG TAB PO SCH ×3 (05:30→17:58)
[2021-10-11 06:26] LABS: #Eosinphils 0.1 thou/uL (0.0-0.7); #Lymphocytes 0.7 thou/uL (1.20-3.40); #Monocytes 1.3 thou/uL (0.11-0.59); #Neutrophils 6.6 thou/uL (1.40-6.50); %Basophils 0.1 % (0.0-1.0); %Eosinophils 0.9 % (0.0-10.0); %Lymphocytes 7.8 % (21.0-51.0); %Monocytes 14.8 % (0.0-10.0); %Neutrophils 76.3 % (42.0-75.0); Hemoglobin 14.4 g/dL (14.0-18.0); Mean Corpuscular Volume 90.9 fL (78.0-98.0); Mean Platelet Volume 6.6 fL (7.4-10.4); Platelet Count 207 thou/uL (130-400); RBC Distribution Width 13.8 % (11.5-14.5); Red Blood Cell (RBC) Count 4.82 mill/uL (4.70-6.10); White Blood Cell (WBC) Count 8.6 thou/uL (4.8-10.8)
[2021-10-11 06:43] LABS: Anion Gap 13 mmol/L (10-20); BUN (Urea Nitrogen) 21 mg/dL (8.9-20.6); Calc. Creatinine Clearance 219 mL/min (70-130); Calcium 8.2 mg/dL (7.8-10.44); Carbon Dioxide 23 mmol/L (22-29); Chloride 103 mmol/L (98-107); Glucose 96 mg/dL (70-105); Potassium 3.9 mmol/L (3.5-5.1); Sodium 135 mmol/L (136-145)
[2021-10-11] MEDS: Ketorolac Tromethamine 30 MG/ML VIAL IVP PRN ×2 (08:51→21:45)
[2021-10-11] MEDS: Lisinopril 20 MG TAB PO SCH (08:57)
[2021-10-11] MEDS: Gabapentin 400 MG CAP PO SCH ×3 (08:57→21:21)
[2021-10-11] MEDS: Propranolol HCl LA 80 MG CAP PO SCH (08:58)
[2021-10-11] MEDS: Polyethylene Glycol 3350 17 GM Packet PO SCH (08:58)
[2021-10-11] MEDS: Transdermal Patch Removal TOP SCH (08:59)
[2021-10-11] MEDS: D5 1/2 NS w/20 mEq KCL 1,000 ML IV SCH ×2 (09:00→15:46)
[2021-10-11] MEDS: metroNIDAZOLE 500 MG TAB PO SCH ×2 (09:00→15:47)
[2021-10-11] MEDS: Pantoprazole 40 MG VIAL IVP SCH ×2 (09:37→21:45)
[2021-10-11] MEDS ORDERED: MD-Gastroview 120 ML BOT ONE (10:48)
[2021-10-11] MEDS: Melatonin 3 MG TAB PO SCH (21:21)
[2021-10-11] MEDS: Lidocaine 5% Patch TD SCH (21:22)
[2021-10-12] MEDS: metroNIDAZOLE 500 MG TAB PO SCH ×2 (00:05→08:33)
[2021-10-12] MEDS: Acetaminophen 500 MG TAB PO SCH ×3 (00:06→12:09)
[2021-10-12] MEDS: D5 1/2 NS w/20 mEq KCL 1,000 ML IV SCH ×2 (00:09→03:22)
[2021-10-12] MEDS: HYDROcodone/Acetaminophen 10/325 mg Tablet PO PRN ×2 (04:38→13:01)
[2021-10-12] MEDS ORDERED: D5 1/2 NS w/20 mEq KCL 1,000 ML IV SCH (08:10)
[2021-10-12] MEDS: Gabapentin 400 MG CAP PO SCH ×2 (08:32→16:01)
[2021-10-12] MEDS: Ketorolac Tromethamine 30 MG/ML VIAL IVP PRN ×2 (08:34→16:01)
[2021-10-12] MEDS: Polyethylene Glycol 3350 17 GM Packet PO SCH (08:34)
[2021-10-12] MEDS: Transdermal Patch Removal TOP SCH (08:35)
[2021-10-12 12:09] VITALS: BP 128/81; TEMP 97.5
[2021-10-12] MEDS: Lisinopril 20 MG TAB PO SCH (13:00)
[2021-10-12] MEDS: Propranolol HCl LA 80 MG CAP PO SCH (13:00)
== END 2021-10-12 16:55 | disposition home or self-care (01) | DRG 330 ==
LOC: ERS 15:45 → SURG B 18:05
PROVIDERS: ADMIT Specialist; ATTEND Specialist
PROC: 0DBN0ZZ Excision of Sigmoid Colon, Open Approach (ICD-10-PCS; principal; 2021-10-09)
PROC: 0D9670Z Drainage of Stomach with Drainage Device, Via Natural or Artificial Opening (ICD-10-PCS; 2021-10-09)
DX: K57.20 Diverticulitis of large intestine with perforation and abscess without bleeding (principal); K56.7 Ileus, unspecified; K59.00 Constipation, unspecified; Z20.822 Contact with and (suspected) exposure to COVID-19; G89.29 Other chronic pain; I10 Essential (primary) hypertension; G43.909 Migraine, unspecified, not intractable, without status migrainosus; E66.9 Obesity, unspecified; Z68.38 Body mass index [BMI] 38.0-38.9, adult; Z88.0 Allergy status to penicillin; Z79.899 Other long term (current) drug therapy; Z98.1 Arthrodesis status
CPT/HCPCS: 36415; 74018; 74022; 74177; 74250; 80048; 80053; 82378; 83605; 83690; 84484; 85025; 87040; 87149; 88307; 93005; 96365; 96366; 96367; 96375; C9113; J0744; J1170; J1650; J1885; J1956; J2250; J2270; J2405; J2704; J3010; J3480; J3490; J7050; J7120; Q0162; Q9963; Q9967; U0002; U0003; U0005